=== PATIENT | male | born 1985 | race Caucasian/White ===

== ENCOUNTER 2018-12-17 18:13 | Emergency (ER) | payer OTHER ==
[~2018-12-17] VITALS: Ht 190.5 cm; Wt 113.4 kg
[~2018-12-17 18:13] MED LIST: BACTRIM DS TAB1 EACH PO; CLINDAMYCIN HC150 MG PO; FLEXERIL PO; HUMALOG100 UNIT/1; IBUPROFEN 800800 MG PO; LANTUS; NORCO 5-325 TA1 EACH PO; ULTRACET TABLE1 EACH PO
[2018-12-17 18:36] LABS: URINE BILIRUBIN NEGATIVE (Negative); URINE BLOOD NEGATIVE (Negative); URINE CLARITY CLEAR; URINE COLOR YELLOW; URINE GLUCOSE-RANDOM TRACE (Negative); URINE KETONES NEGATIVE (Negative); URINE LEUKOCYTES-REFLEX 1+ (Negative); URINE NITRITE-REFLEX NEGATIVE (Negative); URINE PROTEIN NEGATIVE (Negative); URINE UROBILINOGEN 0.2 E.U./dl (0.2-1.0)
[2018-12-17 18:43] LABS: MUCUS None Seen strn/LPF (None Seen); SQUAMOUS 0-3 Few /LPF (0-3)
[2018-12-17 18:44] LABS: URINE WBC-REFLEX >25 Many /HPF (0-5)
[2018-12-17 18:45] LABS: BACTERIA-REFLEX 1-9 Few /HPF (None Seen); CASTS None Seen /LPF (None Seen); CRYSTALS None Seen /LPF (None Seen); URINE RBC None Seen /HPF (0-2)
[2018-12-17] MEDS ORDERED: KEFLEX500 M1 PO (19:04)
[2018-12-17 19:19] VITALS: BP 160/102
== END 2018-12-17 19:21 | disposition home or self-care (01) ==
LOC: M.ERS 18:13
PROVIDERS: Physician Assistant
DX: N39.0 Urinary tract infection, site not specified (principal); R36.9 Urethral discharge, unspecified; E10.9 Type 1 diabetes mellitus without complications; F17.210 Nicotine dependence, cigarettes, uncomplicated; F15.10 Other stimulant abuse, uncomplicated

== ENCOUNTER 2019-03-28 14:00 | Emergency (ER) | payer OTHER ==
[~2019-03-28] VITALS: Ht 190.5 cm; Wt 113.4 kg
[~2019-03-28 14:00] MED LIST changes: +KEFLEX500 M1 PO
[2019-03-28 14:13] LABS: URINE BILIRUBIN NEGATIVE (Negative); URINE BLOOD TRACE (Negative); URINE CLARITY SL CLOUDY; URINE COLOR YELLOW; URINE GLUCOSE-RANDOM NEGATIVE (Negative); URINE KETONES NEGATIVE (Negative); URINE NITRITE-REFLEX NEGATIVE (Negative); URINE PROTEIN TRACE (Negative); URINE SPECIFIC GRAVITY 1.025 (1.005-1.030); URINE UROBILINOGEN 0.2 E.U./dl (0.2-1.0)
[2019-03-28 14:14] LABS: URINE LEUKOCYTES-REFLEX 2+ (Negative)
[2019-03-28] MEDS ORDERED: DOXYCYCLINE 10100 MG PO (14:16)
[2019-03-28 14:22] LABS: SQUAMOUS NONE SEEN /LPF (0-3); URINE RBC 0-2 Rare /HPF (0-2); URINE WBC-REFLEX >25 Many /HPF (0-5); WBC CLUMPS Few (None Seen)
[2019-03-28 14:23] LABS: CASTS None Seen /LPF (None Seen); CRYSTALS None Seen /LPF (None Seen); MUCUS 0-3 Light strn/LPF (None Seen)
[2019-03-28 14:47] VITALS: BP 147/92
== END 2019-03-28 14:49 | disposition home or self-care (01) ==
LOC: M.ERS 14:00
PROVIDERS: Physician Assistant
DX: N34.2 Other urethritis (principal); E10.9 Type 1 diabetes mellitus without complications; F17.210 Nicotine dependence, cigarettes, uncomplicated

== ENCOUNTER 2019-05-14 22:13 | Emergency (ER) | payer OTHER ==
[~2019-05-14] VITALS: Ht 188 cm; Wt 113.4 kg
[~2019-05-14 22:13] MED LIST changes: +DOXYCYCLINE 10100 MG PO
[2019-05-14 23:28] LABS: URINE BILIRUBIN NEGATIVE (Negative); URINE BLOOD NEGATIVE (Negative); URINE CLARITY CLEAR; URINE COLOR YELLOW; URINE GLUCOSE-RANDOM NEGATIVE (Negative); URINE KETONES NEGATIVE (Negative); URINE LEUKOCYTES-REFLEX NEGATIVE (Negative); URINE NITRITE-REFLEX NEGATIVE (Negative); URINE PROTEIN NEGATIVE (Negative); URINE SPECIFIC GRAVITY 1.025 (1.005-1.030)
[2019-05-14 23:42] VITALS: BP 139/91
== END 2019-05-14 23:42 | disposition home or self-care (01) ==
LOC: M.ERS 22:13
PROVIDERS: Personal Emergency Response Attendant
DX: A64 Unspecified sexually transmitted disease (principal); E10.9 Type 1 diabetes mellitus without complications; F17.210 Nicotine dependence, cigarettes, uncomplicated

== ENCOUNTER 2019-05-24 04:00 | Inpatient (IN) | payer OTHER ==
[~2019-05-24] VITALS: Ht 190.5 cm; Wt 108.8 kg
[2019-05-24] VITALS (31 sets, daily range): BP systolic 99–157; BP diastolic 22–127
[~2019-05-24 04:00] MED LIST changes: -HUMALOG100 UNIT/1; +HUMALOG100 UNIT/1 SUBQ; -LANTUS; +LANTUS SUBQ
[2019-05-24 04:38] LABS: HEMATOCRIT 51.1 % (42.0-52.0); HEMOGLOBIN 17.2 gm/dL (14.0-18.0); MCH 31.9 pg (26.0-34.0); MCHC 33.6 g/dL (28.0-37.0); MCV 94.9 fL (80.0-100.0); MPV 7.2 fl. (7.2-11.1); NUCLEATED RBCS 0 /100WBC; PLATELET COUNT* 336 thou/uL (150-400); RBC 5.38 mil/uL (4.50-6.00); RDW-CV 13.4 % (10.5-14.5); WBC 12.9 thou/uL (4.0-11.0)
[2019-05-24 04:39] LABS: BE -9.5 mmol/L (-2 to +3); PO2 99.3 mmHg (75.0-100.0)
[2019-05-24 04:40] LABS: pH 7.127 (7.340-7.450)
[2019-05-24 04:41] LABS: PCO2 65.9 mmHg (35.0-45.0)
[2019-05-24 04:43] LABS: CALCIUM 8.2 mg/dL (8.5-10.1); CREATININE 1.9 mg/dL (0.6-1.3); POTASSIUM 4.4 mmol/L (3.5-5.1)
[2019-05-24 04:46] LABS: URINE BILIRUBIN NEGATIVE (Negative); URINE BLOOD 3+ (Negative); URINE CLARITY CLEAR; URINE COLOR YELLOW; URINE GLUCOSE-RANDOM 1+ (Negative); URINE KETONES NEGATIVE (Negative); URINE LEUKOCYTES-REFLEX NEGATIVE (Negative); URINE NITRITE-REFLEX NEGATIVE (Negative); URINE PROTEIN 1+ (Negative); URINE SPECIFIC GRAVITY 1.025 (1.005-1.030); URINE UROBILINOGEN 0.2 E.U./dl (0.2-1.0)
[2019-05-24 04:50] LABS: PROTIME 10.2 Seconds (9.20-11.50)
[2019-05-24 04:55] LABS: AMP/METHAMP Negative (Negative); BARBITURATES Negative (Negative); BENZODIAZEPINES Negative (Negative); COCAINE Negative (Negative); METHADONE Negative (Negative); OPIATES Negative (Negative); PCP Negative (Negative); THC Negative (Negative)
[2019-05-24 04:56] LABS: TOTAL BILIRUBIN 0.3 mg/dL (<0.1-1.0); TOTAL PROTEIN 7.3 g/dL (6.4-8.2)
[2019-05-24 05:07] LABS: AMORPHOUS URATES Moderate /LPF (None Seen); BACTERIA-REFLEX >30 Many /HPF (None Seen); FINE GRANULAR CASTS 0-3 Few /LPF (None Seen); MUCUS 4-6 Moderate strn/LPF (None Seen); SQUAMOUS 0-3 Few /LPF (0-3); URINE RBC 3-10 Few /HPF (0-2); URINE WBC-REFLEX 0-5 Rare /HPF (0-5)
[2019-05-24 05:54] LABS: ABSOLUTE LYMPHOCYTES 1.2 thou/uL (0.8-5.3); ABSOLUTE MONOCYTES 0.3 thou/uL (0.0-1.2); ABSOLUTE NEUTROPHILS 11.5 thou/uL (1.6-8.1); ANISOCYTOSIS 1+; PLATELET ESTIMATE ADEQUATE; POIKILOCYTOSIS 1+
[2019-05-24 06:29] LABS: BE -6.3 mmol/L (-2 to +3)
[2019-05-24 06:30] LABS: PCO2 77.7 mmHg (35.0-45.0); PO2 135.7 mmHg (75.0-100.0); pH 7.137 (7.340-7.450)
--- NOTE | 2019-05-24 06:31 | NUR ---
PT PRESENTED TO THE ED VIA EMS. PT HAD COFFEE GROUND BLOOD TINGED EMESIS ON THE SIDE OF HIS FACE AND AROUND HIS NOSE AND MOUTH.
--- NOTE | 2019-05-24 06:32 | NUR ---
PT RESPONDED TO THE DOCTOR SPEAKING TO HIM FOR THE FIRST TIME SINCE PRESENTING TO THE ED. AT 0610 THE PATIENT REPLIED WITH "WHAT" AND THEN HAD NO FURTHER CONTACT. THE PATIENT HAS SPORADICALLY RESPONDED TO PAINFUL STIMULI BY REMOVING HIMSELF.
--- NOTE | 2019-05-24 08:12 | NUR ---
INTUBATION ORDERED, 10MG VERSED IV PUSH GIVEN AT 0719, 150MG SUCCS IV PUSH GIVEN 0719, INTUBATION STARTED AT 0720, TUBE PLACED 25 AT THE LIP AT 0721, CONFIRMATION WITH COLOR CHANGE, XRAY ORDERED, NG TUBE PLACED IN RIGHT NARE, TUBE LENGTH 65. XRAY CONFIRMATION OF ET TUBE PLACEMENT AT 28 AT THE LIP AT 0745. KUB CONFIRMATION PLACEMENT OF NG TUBE 65 AT RIGHT NARE AT 0750. PT TRANSPORTED TO ICU AT 0750.
[2019-05-24 10:00] LABS: BE -7.1 mmol/L (-2 to +3); PO2 101.3 mmHg (75.0-100.0)
[2019-05-24 10:29] LABS: pH 7.214 (7.340-7.450)
[2019-05-24 10:30] LABS: PCO2 54.7 mmHg (35.0-45.0)
[2019-05-24 12:16] LABS: CREATININE 1.5 mg/dL (0.6-1.3)
[2019-05-24 12:21] LABS: POTASSIUM 6.4 mmol/L (3.5-5.1)
--- NOTE | 2019-05-24 13:00 | NUR ---
PT RECEIVED FROM ER AT 0755, ON VENT SUPPORT. 2L NS BOLUS ADMINISTERED. SEDATION INITIATED WITH VERSED DRIP AND FENTANYL ADDED PER DIRECTOR OF PSYCHIATRY. PT AGITATED AT TIMES TRYING TO PULL OUT THE TUBE, SEDATION INCREASED TO MAX. NS AT 150 MLS/HR. CENTRAL LINE, LT SCL PLACED BY ANESTHESIOLOGIST.
[2019-05-24 13:10] LABS: CALCIUM 6.9 mg/dL (8.5-10.1); CREATININE 1.3 mg/dL (0.6-1.3); POTASSIUM 5.8 mmol/L (3.5-5.1)
[2019-05-24 14:32] LABS: BE -3.2 mmol/L (-2 to +3)
[2019-05-24 14:36] LABS: PCO2 53.3 mmHg (35.0-45.0); PO2 150.5 mmHg (75.0-100.0); pH 7.281 (7.340-7.450)
--- NOTE | 2019-05-24 18:09 | NUR ---
HYPERKALEMIA CORRECTED PER ORDERS, LAST K+ 4.5. INSULIN PER PROTOCOL. PER HIS SISTER IN LAW, HE HAS HAD ISSUES WTIH DRUG OVERDOSE BEFORE AND WAS DIAGNOSED WITH BIPOLAR BUT NOT ON ANY PSYCHIATRIC MEDS. VERSED PUSH ONCE FOR AGITATION. VERSED AND FENTANYL DRIP CONTD AT MAX.
[2019-05-25] VITALS (24 sets, daily range): BP systolic 102–149; BP diastolic 51–111
--- NOTE | 2019-05-25 02:32 | NUR ---
PT. BECAME AGITATED, KICKING AND THROWING LEGS OFF BED, ATTEMPTING TO CLIMB OUT OF BED. VERSED/FENTANYL AT MAX DOSES. VERSED 2MG PUSH GIVEN, NO RELIEF. DR. ERIN BROWN, ORDER RECEIVED FOR PROPOFOL GTT.
[2019-05-25 05:14] LABS: ABSOLUTE EOSINOPHILS 0.1 thou/uL (0.0-0.7); ABSOLUTE LYMPHOCYTES 0.9 thou/uL (0.8-5.3); ABSOLUTE MONOCYTES 0.3 thou/uL (0.0-1.2); ABSOLUTE NEUTROPHILS 9.8 thou/uL (1.6-8.1); BASOPHILS 0.4 %; EOSINOPHILS 0.5 %; HEMATOCRIT 42.7 % (42.0-52.0); LYMPHOCYTES 8.2 %; MCH 32.3 pg (26.0-34.0); MCHC 34.5 g/dL (28.0-37.0); MCV 93.6 fL (80.0-100.0); MONOCYTES 3.1 %; MPV 7.5 fl. (7.2-11.1); NUCLEATED RBCS 0 /100WBC; POLYS 87.8 %; RBC 4.57 mil/uL (4.50-6.00); RDW-CV 13.3 % (10.5-14.5); WBC 11.1 thou/uL (4.0-11.0)
[2019-05-25 05:20] LABS: HEMOGLOBIN 14.7 gm/dL (14.0-18.0); PLATELET COUNT* 192 thou/uL (150-400)
[2019-05-25 05:31] LABS: CALCIUM 7.7 mg/dL (8.5-10.1); CREATININE 1.4 mg/dL (0.6-1.3); POTASSIUM 4.3 mmol/L (3.5-5.1)
[2019-05-25 08:13] LABS: BE 0.6 mmol/L (-2 to +3); PO2 84.6 mmHg (75.0-100.0); pH 7.334 (7.340-7.450)
[2019-05-25 08:20] LABS: PCO2 52.8 mmHg (35.0-45.0)
--- NOTE | 2019-05-25 09:28 | EKG ---
[place] [address] ELECTROCARDIOGRAM REPORT Name: LYLY HDZ Room: [address] ADM IN M.R.#: [id number] Admission: 05/24/19 Attend Phys: Kushal Erickson Discharge: Date of : 87 Report #: [id number] THIS REPORT FOR: //name// [facility] ED Test Date: 2019-05-24 Test Time: 04:22:40 Pat Name: LYLY HDZ Department: Room: [facility] Gender: M Program Schedule Clerk: : 1985 Requested By: Jolanta Chin Order Number: [id number] MD: Abner Shepherd Measurements Intervals [place] Rate: 101 P: 95 AL: 157 QRS: 91 QRSD: 95 T: 25 QT: 346 QTc: 449 Interpretive Statements Sinus tachycardia Borderline right axis deviation ST elevation suggests acute pericarditis No previous ECG available for comparison Electronically Signed On 05-25-2019 9:28:10 BUSINESS DEVELOPMENT OFFICER by Abner Shepherd [email or web address] <ELECTRONICALLY SIGNED> By: Abner Shepherd MD, [facility] 05/25/19 0928 1 1 Abner Shepherd MD, FACC /EPI
--- NOTE | 2019-05-25 09:42 | NUR ---
PT SEEN BY HEBREW PROFESSOR, EXTUBATION ORDERS RECEIVED. PT EXTUBATED AT 0931, EXTUBATION UNEVENTFUL. ON HIGH FLOW NC 15L/M.
--- NOTE | 2019-05-25 09:44 | 2DMMODE ---
[place] [address] 2 D/M-MODE ECHOCARDIOGRAM Name: LYLY HDZ Room: [address] ADM IN M.R.#: [id number] Admission: 05/24/19 Attend Phys: Kushal jara Sa Discharge: Date of : 87 Date of Service: 05/25/19 0944 Report #: [id number] THIS REPORT FOR: //name// APPROVED REPORT Study performed: 05/24/2019 13:13:19 EXAM: Comprehensive 2D, Doppler, and color-flow Echocardiogram Patient Location: Bedside BSA: 2.46 HR: 110 bpm BP: 138/47 mmHg Other Information Study Quality: Good Indications Elevated Troponin 2D Dimensions IVSd: 19.82 (7-11mm) LVOT Diam: 24.23 (18-24mm) LVDd: 39.82 mm PWd: 12.09 (7-11mm) Ascending Ao: 41.00 (22-36mm) LVDs: 34.44 (25-40mm) Aortic Root: 31.87 mm Volumes Left Atrial Volume (Systole) LA ESV Index: 18.30 mL/m2 Aortic Valve AoV Peak Donald.: 0.90 m/s AO Peak Gr.: 3.22 mmHg LVOT Max P.86 mmHg AO Mean Gr.: 1.72 mmHg LVOT Mean P.19 mmHg LVOT Max V: 0.85 m/s AO V2 VTI: 15.28 cm LVOT Mean V: 0.49 m/s SHAI (VTI): 3.26 cm2 LVOT V1 VTI: 10.80 cm Mitral Valve E/A Ratio: 0.83 MV Decel. Time: 129.17 ms MV E Max Donald.: 0.64 m/s MV PHT: 37.46 ms MVA (PHT): 5.87 [place]2 [place] [address] 2 D/M-MODE ECHOCARDIOGRAM Name: LYLY HDZ Room: [address] IN .R.#: [id number] Admission: 05/24/19 Attend Phys: Kushal jara Sa Discharge: Date of : 87 Date of Service: 05/25/19 0944 Report #: [id number] TDI E/Lateral E': 5.82 E/Medial E': 5.82 Medial E' Donald.: 0.11 m/s Lateral E' Donald.: 0.11 m/s Pulmonary Valve PV Peak Donald.: 0.98 m/s PV Peak Gr.: 3.87 mmHg Left Ventricle The left ventricle is normal size. There is normal LV segmental wall motion. Concentric left ventricular hypertrophy. Left ventricular systolic function is normal. LVEF is 55-60%. The left ventricular diastolic function is normal. Right Ventricle Right ventricle is mildly dilated. The right ventricular systolic function is normal. Atria The left atrium size is normal. Right atrium is mildly dilated. Aortic Valve The aortic valve is normal in structure. No aortic regurgitation is present. There is no aortic valvular stenosis. Mitral Valve The mitral valve is normal in structure. There is no mitral valve regurgitation noted. No evidence of mitral valve stenosis. Tricuspid Valve The tricuspid valve is normal in structure. There is no tricuspid valve regurgitation noted. Pulmonic Valve The pulmonary valve is normal in structure. There is no pulmonic valvular regurgitation. Great Vessels The aortic root is normal in size. Ascending aorta is dilated. IVC is normal in size and collapses >50% with inspiration. Pericardium There is [place] [address] 2 D/M-MODE ECHOCARDIOGRAM Name: LYLY HDZ Room: [address] IN ..#: [id number] Admission: 05/24/19 Attend Phys: Kushal jara Sa Discharge: Date of : 87 Date of Service: 05/25/19 0944 Report #: [id number] <Conclusion> The left ventricle is normal size. Concentric left ventricular hypertrophy. LVEF is 55-60%. The left ventricular diastolic function is normal. Right ventricle is mildly dilated. Right atrium is mildly dilated. IVC is normal in size and collapses >50% with inspiration. Ascending aorta is dilated. (4.1 cm) <ELECTRONICALLY SIGNED> By: Abner Shepherd MD, FACC 05/25/1943 3 3 Abner Shepherd MD, FACC /INF
--- NOTE | 2019-05-25 10:05 | CON ---
[address] [address] CONSULTATION Name: ANDREINALYLY TAMAYO Room: [address] ADM IN M.R.#: [id number] Admission: 05/24/19 Attend Phys: Kushal Erickson Discharge: Date of : 87 Report #: [id number] THIS REPORT FOR: //name// CC: NAVNEET physician/PCP Kushal Caruso REASON FOR CONSULTATION: Respiratory failure. REFERRING PHYSICIAN: Dr. Orozco HISTORY OF PRESENT ILLNESS: The patient was intubated, sedated during my evaluation, did not participate in the history. I reviewed medical records, discussed with the nursing staff. His father is also at the bedside, provided some medical information. This is a 34-year-old male patient who was found unresponsive by a friend. Apparently, the friend did some CPR for him. EMS was called and they gave him Narcan, apparently he woke up afterward and became agitated. He was given ketamine. He was transferred to the ER. In the ER, he was agitated and they tried him on BiPAP; however, he developed hypercapnic respiratory failure unresponsive to noninvasive ventilation. He had to be intubated. During my visit in the ICU, he was on the vent. He looks comfortable. He has been started on Versed drip. During my visit, he was on 3 mg and did not respond to me. The secretions from the ET tube demonstrated thin material with increased secretions. There is a history of heroin use and the patient and apparently there was a concern that he might did some heroin overnight and also then reported vomiting by EMS. His father at the bedside told me that since the patient smokes, but he never had a lung disease, never been on oxygen, CPAP or inhalers, but also reported the patient has diabetes. PAST MEDICAL HISTORY: Diabetes mellitus. There is a mention of drug abuse in his history. PAST SURGICAL HISTORY: No chest surgery. FAMILY HISTORY: Reviewed with the father noncontributory. SOCIAL HISTORY: He smokes per the father. There is a mention of drug abuse in his records. REVIEW OF SYSTEMS: Unobtainable due to the patient's condition. ALLERGIES: No available information. PHYSICAL EXAMINATION: VITAL SIGNS: On examination, he is on 100% oxygen with saturation 97%, blood pressure 130/47, pulse rate of 98, temperature 36.7[place] [address] CONSULTATION Name: LYLY HDZ Room: [address] IN [facility]#: [id number] Admission: 05/24/19 Attend Phys: Kushal Erickson Discharge: Date of : 87 Report #: [id number] GENERAL: Looks his stated age, sedated on the vent. HEENT: Head normocephalic, atraumatic. Pupils pinpoint, sluggish reaction to light equally bilaterally. Not pale, no jaundice. Externally, looks normal. Oral cavity, moist mucous membrane. ET tube in place. NECK: Full range of movement. Trachea central. No palpable lymph node. CHEST: Diminished air movement bilaterally, prolonged expiratory phase. No wheezes, some rhonchi heard bilaterally. HEART: S1, S2, no murmur. ABDOMEN: Benign, soft, lax, nontender, positive bowel sounds, sluggish bowel sounds. No masses felt, no rebound, no rigidity. EXTREMITIES: Lower extremity: No edema, no calf tenderness. SKIN: No rash. PSYCHIATRIC: Mood and affect could not be evaluated. NEUROLOGIC: He is sedated. MUSCULOSKELETAL: Normal inspection. LABORATORY DATA: He had multiple imaging. The CT head and CT cervical spine, no acute pathology. His chest x-ray demonstrated bilateral infiltrate. His white blood count 12.9, hemoglobin 17.2 and platelets of 336. His ABGs initially on the BiPAP 7.137/77/135. This was on the BiPAP prior to intubation. His INR is 1. His creatinine is 1.9 with a potassium 4.4, BUN of 32. His AST and ALT elevated. His CPK is also elevated. Urine drug screen did not show any positive abnormal finding. IMPRESSION: 1. Acute hypoxic respiratory failure. 2. Pulmonary infiltrates bilaterally. 3. Pneumonia. 4. Aspiration into the airways. 5. Mental status change. 6. Diabetes mellitus. 7. Hyperglycemia. 8. Concerns about encephalopathy. 9. Concerns about drug overdose with synthetic heroin. 10. Elevated CPK. PLAN: At this point, the patient has required significant amount of oxygen, although the O2 sat on the monitor was 97%. Waiting for the blood gas before start weaning, I would continue him on the assist controlled ventilation keep the PEEP at 8. Discussed with RN, we need him to be sedated for now till his O2 needs are better. He is currently on 100% oxygen. We can use Versed and fentanyl for sedation. We will hold off on tube feeding him at least 24 hours and his oxygen needs improved. Agree with the fluid resuscitation. He currently does not require [facility] [address] [place] [address] CONSULTATION Name: LYLY HDZ Room: [address] IN M.R.#: [id number] Admission: 05/24/19 Attend Phys: Kushal jara Morse Discharge: Date of : 87 Report #: [id number] vasopressors. Once his O2 needs have improved, we will start waking him up and evaluate his mental status. It was noted Neurology was consulted. We will do a followup chest x-ray, blood gas. There is a concern of the ARDS at this point. We will continue the patient on the current treatment. Discussed with the father at the bedside. Discussed with RN and RT. Critical care time 50 minutes. <ELECTRONICALLY SIGNED> By: Sara Ron MD 05/25/19 1005 1007 [id number] Ron MD /nt
[2019-05-25 10:08] LABS: HIV-1/HIV-2 ANTIBODY Non Reactive (Non Reactive)
--- NOTE | 2019-05-25 11:11 | NUR ---
PT.EXTUBATED THIS AM. ON O2 BY NC. SLEEPS, WAKES UP TO ASK FOR WATER OR ICE. SEEMED TO KNOW VISITORS. FATHER PRESENT. FEMALE PRESENT. I ASKED HER WHO SHE WAS. SHE SAID FAMILY. I ASKED ARE YOU A SISTER OR HIS GIRLFRIEND. SHE WHISPERED GIRL FRIEND. FATHER CONFIRMED PT.HAS NO INSURANCE AND IS BASICALLY UNEMPLOYED. HE SAID IF SOMETHING COMES AROUND(A JOB), HE WILL DO IT. INTRODUCED ROLE OF CM AND THAT WE WOULD FOLLOW PT.DURING HOSPITAL STAY FOR ANY DISCHARGE NEEDS.
--- NOTE | 2019-05-25 19:36 | NUR ---
PT PASSED BED SIDE SWALLOW AND EATING REGULAR DIET. INSULIN PER PROTOCOL.GOOD URINE OUTPUT. FAMILY IN THE ROOM. PROGRESSING TOWARDS GOALS.
--- NOTE | 2019-05-25 22:30 | NUR ---
SPOKE TO PT, ANSWERING HIS QUESTIONS ABOUT HIS ADMISSION. THIS RN ASKED PT WHAT HE REMEMBERED FROM THAT DAY, PT REPLIED "I DON'T KNOW HOW MUCH I SHOULD SAY. I TOOK A SHOT OF HEROIN. I USED TO DO STUFF LIKE THAT BUT I HADN'T IN A LONG TIME. I DON'T KNOW WHY I THOUGHT IT WAS A GOOD IDEA." PT WAS TEARFUL AND REMORSEFUL, STATING "I WOULD HAVE . MY BROTHER SAVED MY LIFE."
[2019-05-26] VITALS (17 sets, daily range): BP systolic 108–154; BP diastolic 46–79
--- NOTE | 2019-05-26 04:34 | NUR ---
PATIENT O2 SAT DECREASED TO MID 80'S ON HFNC. ATTEMPTED TO GET SATURATIONS BACK UP BY TITRATING UP ON O2 WITH NO SUCCESS. PATIENT PLACED ON NON-REBREATHER AT 15L. SATURATIONS STAYING IN MID TO UPPER 90'S.
[2019-05-26 04:43] LABS: ABSOLUTE EOSINOPHILS 0.1 thou/uL (0.0-0.7); ABSOLUTE LYMPHOCYTES 0.6 thou/uL (0.8-5.3); ABSOLUTE MONOCYTES 0.5 thou/uL (0.0-1.2); ABSOLUTE NEUTROPHILS 10.8 thou/uL (1.6-8.1); BASOPHILS 0.3 %; EOSINOPHILS 1.1 %; HEMATOCRIT 39.8 % (42.0-52.0); LYMPHOCYTES 4.6 %; MCH 32.6 pg (26.0-34.0); MCHC 35.1 g/dL (28.0-37.0); MCV 92.9 fL (80.0-100.0); MONOCYTES 4.1 %; MPV 7.3 fl. (7.2-11.1); NUCLEATED RBCS 0 /100WBC; PLATELET COUNT* 185 thou/uL (150-400); POLYS 89.9 %; RBC 4.29 mil/uL (4.50-6.00); RDW-CV 13.1 % (10.5-14.5)
[2019-05-26 05:00] LABS: CALCIUM 8.5 mg/dL (8.5-10.1); CREATININE 1.1 mg/dL (0.6-1.3); POTASSIUM 4.1 mmol/L (3.5-5.1)
--- NOTE | 2019-05-26 06:39 | NUR ---
ASSESSMENTS CHARTED. PATIENT HAS BEEN AGITATED WITH STAFF FOR THE MAJORITY OF THE SHIFT. BLOOD GLUCOSE LEVELS HAVE BEEN ELEVATED, ADMINISTERED INSULIN AND OBTAINED NEW INSULIN ORDERS. PATIENT STILL NOT SATISFIED WITH INCREASED INSULIN ADMINISTRATION DESPITE BLOOD GLUCOSE LEVELS RETURNING TO NORMAL RANGE FOR THE PATIENT. PATIENT REMAINS ON NONREBREATHER AT 15L. PATIENT EXPECTORATING LARGE AMOUNTS OF JORDAN MUCOUS FROM LUNGS. EARLY IN THE SHIFT, PATIENT STATED TO KENDALL GAONA THAT HE HAD USED HERION PRIOR TO LOSING CONCIOUSNESS AT HOME. PATIENT'S FAMILY AT BEDSIDE. THERE IS DIFFICULTY IN GETTING THE PATIENT'S GIRLFRIEND TO FOLLOW HOSPITAL RULES INCLUDING NOT CLIMBING IN BED WITH THE PATIENT AND LEAVING WHEN VISITING HOURS ARE OVER. OTHER FAMILY MEMBERS MORE COOPERATIVE.
--- NOTE | 2019-05-26 11:31 | NUR ---
ICU rounds: Extubated yesterday. Quintero out today. Pt admitted to using heroin. On HF o2 via NC. Carb controlled diet for DM. DC fluids. Continue ICU status today.
--- NOTE | 2019-05-26 13:16 | NUR ---
PT TO THE RECLINER, STB. PORTER'Raman VALERO OUT.
--- NOTE | 2019-05-26 15:48 | NUR ---
PT A&O X4. VSS. O2 SATS >95% IN HFC 65%. PT HAS NOT VOIDED POST PORTER OUT. TOLERATING DIET. INSULIN PER PROTOCOL. REPORT GIVEN TO GREGORY KOHLER.
--- NOTE | 2019-05-26 15:50 | NUR ---
REPORT RECEIVED FROM Aylin VELASCO. PT TO FLOOR AT APPROXIMATELY 1535. ASSESSMENY COMPLETED CHARTED. HOURLY ROUNDING AND FALL PRECAUTIONS IN PLACE FOR PT SAFETY
[2019-05-27] VITALS (7 sets, daily range): BP systolic 140–151; BP diastolic 66–82
[2019-05-27 03:55] LABS: ABSOLUTE EOSINOPHILS 0.2 thou/uL (0.0-0.7); ABSOLUTE LYMPHOCYTES 0.6 thou/uL (0.8-5.3); ABSOLUTE MONOCYTES 0.5 thou/uL (0.0-1.2); BASOPHILS 0.3 %; EOSINOPHILS 1.7 %; HEMATOCRIT 40.1 % (42.0-52.0); MCH 32.6 pg (26.0-34.0); MCHC 34.9 g/dL (28.0-37.0); MCV 93.5 fL (80.0-100.0); MONOCYTES 5.3 %; MPV 7.9 fl. (7.2-11.1); NUCLEATED RBCS 0 /100WBC; PLATELET COUNT* 193 thou/uL (150-400); POLYS 86.7 %; RBC 4.29 mil/uL (4.50-6.00); WBC 10.4 thou/uL (4.0-11.0)
[2019-05-27 05:12] LABS: ALBUMIN 2.3 g/dL (3.4-5.0); POTASSIUM 4.2 mmol/L (3.5-5.1); TOTAL BILIRUBIN 0.5 mg/dL (<0.1-1.0); TOTAL PROTEIN 6.4 g/dL (6.4-8.2)
--- NOTE | 2019-05-27 07:49 | NUR ---
ASSUMED PT CARE AT APPROX 1930. PT IS AWAKE AND ORIENTED X4. VSS ON HFC AT 65% FiO2, NO DESATURATIONS NOTED WHILE ON THE HIGH FLOW O2 SUPPORT. FOOD SERVER IS TRACING SR. ASSESSMENT DONE AND CHARTED. PT C/O ARM AND SHOULDER PAIN RELIEVED BY PAIN MEDICINE GIVEN PER SEP. TAPERED OXYCODONE ORDERED. PT IS ABLE TO SLEEP MOST OF THE NIGHT. CALL LIGHT WITHIN REACH. HOURLY ROUNDING DONE FOR PT SAFETY. FALL PRECAUTIONS IN PLACE.
--- NOTE | 2019-05-27 09:27 | CON ---
[address] [address] CONSULTATION Name: LYLY HDZ Room: [address] ADM IN M.R.#: [id number] Admission: 05/24/19 Attend Phys: Kushal Erickson Discharge: Date of : 87 Report #: [id number] THIS REPORT FOR: //name// CC: NAVNEET physician/PCP Kushal Caruso DATE OF SERVICE: 05/24/2019 NEPHROLOGY CONSULTATION CONSULTING PHYSICIAN: Dr. Fatima. REASON FOR NEPHROLOGY CONSULTATION: Acute kidney injury, rhabdomyolysis. REASON FOR ADMISSION: Altered mental status, encephalopathy. HISTORY OF PRESENT ILLNESS: This is a 34-year-old male who was brought to the hospital after he was found unresponsive in a camper and EMS was called. Apparently, he also received CPR for a brief unknown period of time and received Narcan after which he did wake up and he was agitated. He was given ketamine at that time. He was brought to the ER, initially put on BiPAP. His pupils constricted. He had some jerking of the upper extremities. He had to be intubated because of severe respiratory acidosis. He was also found to have CPK of 13,000 and his creatinine was 1.9, and hence Nephrology was consulted. He is getting IV fluids and he has a Quintero catheter with good urine output. There is concern for heroin use because his UDS is negative. ALLERGIES: We do not know. REVIEW OF SYSTEMS: As mentioned in history of present illness. Otherwise he is intubated and sedated, we cannot obtain. PAST MEDICAL AND SURGICAL HISTORY: We do not know. FAMILY HISTORY: We do not know. HOME MEDICATIONS: We do not know. PHYSICAL EXAMINATION: VITAL SIGNS: Blood pressure is 110/49, pulse rate 96, temperature is 36.7, respiratory rate is 12, pulse ox 97% and he is on 100% FiO2 on the ventilator. GENERAL: He is currently intubated and sedated. HEAD AND EYES: Atraumatic, normocephalic. EARS, NOSE, AND THROAT: He has an ET tube in place. NECK: No JVD. CHEST: Bilaterally diminished breath sounds anteriorly[place] [address] CONSULTATION Name: LYLY HDZ Room: [address] IN [facility].#: [id number] Admission: 05/24/19 Attend Phys: Kushal Erickson Discharge: Date of : 87 Report #: [id number] wheezing. CARDIOVASCULAR: S1, S2 normal. No murmurs. ABDOMEN: Soft, nondistended. Bowel sounds present. EXTREMITIES: Lower extremities; there is no lower extremity edema. NEUROLOGICAL FUNCTION: He is currently sedated. PSYCHIATRIC: Cannot assess. LABORATORY DATA: WBC 12.9, hemoglobin 17.2, sodium is 134, potassium is 4.4, BUN is 32, creatinine is 1.9, CO2 [place] 26 [place] [address], and other labs were reviewed. IMAGING: Chest x-ray, cervical CT, abdominal x-ray were reviewed. ASSESSMENT: 1. Acute kidney injury, which is in the setting of intravascular volume depletion and rhabdomyolysis, creatinine 1.9 on admission and urinalysis shows 3-10 rbc's per high power field, 1+ protein and granular casts. Renal imaging is pending. 2. Severe rhabdomyolysis. CPK is 13,000 on admission. 3. Transaminitis. 4. Aspiration pneumonia. 5. Acute encephalopathy. 6. Acute respiratory failure. 7. Acute respiratory acidosis, which is in the setting of likely opioid abuse. 8. Surgery with sepsis. PLAN: 1. Continue with IV fluids, normal saline at 125 mL an hour for now, follow CPK, keep his MAP around 65-70. 2. We will check renal ultrasound. Strict I's and O's. Thank you for this consultation. We will continue to follow along with you. <ELECTRONICALLY SIGNED> By: Una Arnold MD 05/27/19 0927 1101 [id number] Arnold MD /nt
--- NOTE | 2019-05-27 18:57 | EEG ---
[address] [address] EEG STUDY REPORT Name: LYLY HDZ Room: [address] IN M.R.#: [id number] Admission: 05/24/19 Attend Phys: Kushal Erickson Discharge: Date of : 87 Report #: [id number] THIS REPORT FOR: //name// CC: NAVNEET physician/PCP Kushal Caruso This patient is being evaluated for altered mental status. EEG was done by placing the electrode by standard 10-20 system of electrode placement. Both referential and sequential montages were used for recording. Background activity in this patient's EEG is about 6-7 Hz and 10-15 microvolts. It is a symmetrical activity. The patient is unresponsive. Photic stimulation was unremarkable. IMPRESSION: This is an abnormal EEG because it is disorganized and poorly formed. That is a nonspecific abnormality, which can occur with encephalopathy, effect of psychotropic medication, dementia, etc. Clinical correlation is recommended. <ELECTRONICALLY SIGNED> By: Barrington Luke MD 05/27/19 1857 1730 [id number] Luke MD /nt
--- NOTE | 2019-05-27 18:57 | CON ---
[address] [address] CONSULTATION Name: LYLY HDZ Room: [address] IN M.R.#: [id number] Admission: 05/24/19 Attend Phys: Kushal Erickson Discharge: Date of : 87 Report #: [id number] THIS REPORT FOR: //name// CC: NAVNEET physician/PCP Kushal Caruso DATE OF SERVICE: 05/24/2019 HISTORY OF PRESENT ILLNESS: This is a 34-year-old male patient who was evaluated by me for altered mental status. This patient does not provide any history. No family member is here. I talked to the nurses looking after this patient and this patient was admitted when he was found with shallow respiration. The history is from the records and it looks like the patient has a history of methamphetamine use and recently met a girl who has used heroin. He was admitted with a suspected overdose. Presently, he is on sedation. Narcan woke him up and he became very agitated. Nurses indicate that they tried to wean him off the sedation and they were unsuccessful, in fact, multiple people were required to hold him down. REVIEW OF SYSTEMS: Available only as described above. Review of systems indicate that this patient continued to be unresponsive. His potassium is 6.4. His blood sugar is 231. He did have kidney problem. His calcium is only 7. His albumin is normal at 4. This is all the relevant 14-point review of system, I can get. PAST MEDICAL HISTORY: Unavailable, but he has a history of drug use. FAMILY HISTORY: Unavailable. SOCIAL HISTORY: As described above. The patient has a brother, but he was not available. PHYSICAL EXAMINATION: The patient's examination is limited. He is sedated. When sedation vacation is given, he become extremely agitated and according to the nurses, it took about 8-9 people to restrain him after that. His pupil looks about the same. There is no meningeal sign in this patient. He did have some workup done. He did have a CT scan of the head, which showed no acute changes. He is intubated. His blood pressure is 110/49, respiration is 19, pulse is 96. He has been afebrile. LABORATORY DATA: His white count is trace high at 12.9, but he has multiple other abnormality. IMPRESSION: Difficult to form in this patient as history is not available. I suspect encephalopathy including hypoxic will [place] [address] CONSULTATION Name: LYLY HDZ Room: [address] IN [facility]#: [id number] Admission: 05/24/19 Attend Phys: Kushal Erickson Discharge: Date of : 87 Report #: [id number] His workup is going to be difficult because of his agitation. I will go ahead and do an EEG in this patient and later on, we may have to consider an MRI, but the workup including MRI will be very difficult with such severe agitation and the patient's part. Thank you very much for this referral. <ELECTRONICALLY SIGNED> By: Barrington Luke MD 05/27/19 1857 1239 [id number] Luke MD /nt
[2019-05-28] VITALS (7 sets, daily range): BP systolic 125–156; BP diastolic 69–85
[2019-05-28 02:07] LABS: GLYCOHEMOGLOBIN (HGB A1C) 7.3 % (4.8-5.6)
--- NOTE | 2019-05-28 05:24 | NUR ---
ASSUMED PT CARE AT APPROX 1930. PT IS AWAKE AND ORIENTED X4. VSS ON 6L OF O2/NC. DISPLAY COORDINATOR IN PLACE TRACING SR/ST. ASSESSMENT DONE AND CHARTED. PT C/O SHOULDER AND ARM PAIN RELIEVED BY TYLENOL GIVEN PER SEP. PT IS ABLE TO SLEEP MOST OF THE NIGHT. O2 SUPPORT TITRATED TO 4L PER RT, NO DESATURATIONS/RESP DISTRESS NOTED. CALL LIGHT WITHIN REACH. HOURLY ROUNDING DONE FOR PT SAFETY.
[2019-05-28 05:31] LABS: ABSOLUTE EOSINOPHILS 0.2 thou/uL (0.0-0.7); ABSOLUTE LYMPHOCYTES 0.8 thou/uL (0.8-5.3); ABSOLUTE MONOCYTES 0.8 thou/uL (0.0-1.2); ABSOLUTE NEUTROPHILS 7.9 thou/uL (1.6-8.1); BASOPHILS 0.2 %; EOSINOPHILS 2.2 %; HEMATOCRIT 40.2 % (42.0-52.0); HEMOGLOBIN 14.1 gm/dL (14.0-18.0); LYMPHOCYTES 7.9 %; MCH 32.6 pg (26.0-34.0); MCHC 35.1 g/dL (28.0-37.0); MCV 93.1 fL (80.0-100.0); MONOCYTES 8.5 %; MPV 7.7 fl. (7.2-11.1); NUCLEATED RBCS 0 /100WBC; PLATELET COUNT* 236 thou/uL (150-400); POLYS 81.2 %; RBC 4.32 mil/uL (4.50-6.00); RDW-CV 12.8 % (10.5-14.5); WBC 9.7 thou/uL (4.0-11.0)
[2019-05-28 05:40] LABS: ALBUMIN 2.5 g/dL (3.4-5.0); CALCIUM 9.2 mg/dL (8.5-10.1); POTASSIUM 3.7 mmol/L (3.5-5.1); TOTAL BILIRUBIN 0.4 mg/dL (<0.1-1.0); TOTAL PROTEIN 6.9 g/dL (6.4-8.2)
--- NOTE | 2019-05-28 13:36 | NUR ---
PT WAS SCREENED BY [employer], NOT ELIGIBLE FOR MEDICAID
--- NOTE | 2019-05-28 18:00 | NUR ---
PT VSS, PT CHANGED TO MED SURG STATUS, PT UP AD JENNY, PT AMBULATING WITH OXYGEN BOTTLE. HOURLY ROUNDING PERFORMED. POSSESSIONS AND CALL LIGHT WITHIN REACH. PT HAS LEFT SUBCLAVIAN TRIPLE LUMEN PICC, BLOOD RETURN ON ALL.
--- NOTE | 2019-05-29 03:34 | NUR ---
PT ALERT ORIENTED. UP AD JENNY IN ROOM. MED SURG STATUS. O2 AT 2 LITERS NC.
[2019-05-29 04:00] VITALS: BP 144/81
[2019-05-29 05:44] LABS: ABSOLUTE EOSINOPHILS 0.5 thou/uL (0.0-0.7); ABSOLUTE LYMPHOCYTES 1.1 thou/uL (0.8-5.3); ABSOLUTE MONOCYTES 1.1 thou/uL (0.0-1.2); ABSOLUTE NEUTROPHILS 7.9 thou/uL (1.6-8.1); BASOPHILS 0.4 %; EOSINOPHILS 4.3 %; HEMATOCRIT 44.1 % (42.0-52.0); HEMOGLOBIN 15.5 gm/dL (14.0-18.0); MCHC 35.1 g/dL (28.0-37.0); MCV 93.9 fL (80.0-100.0); MONOCYTES 10.9 %; MPV 7.1 fl. (7.2-11.1); NUCLEATED RBCS 0 /100WBC; PLATELET COUNT* 272 thou/uL (150-400); POLYS 74.4 %; WBC 10.5 thou/uL (4.0-11.0)
[2019-05-29 06:05] LABS: CALCIUM 9.5 mg/dL (8.5-10.1); CREATININE 1.1 mg/dL (0.6-1.3); POTASSIUM 4.2 mmol/L (3.5-5.1)
[2019-05-29 08:00] VITALS: BP 136/73
[2019-05-29] MEDS ORDERED: SEROQUEL 100 M100 M1 PO (11:37)
[2019-05-29] MEDS ORDERED: PRINIVIL20 M1 PO (11:39)
[2019-05-29 12:51] VITALS: BP 130/89
--- NOTE | 2019-05-29 16:31 | NUR ---
PT VSS, MED SURG STATUS, USING O2 AT 2L VIA NASAL CANULA PRN. UP AD JENNY. HOURLY ROUNDING PERFORMED, POSSESSIONS AND CALL LIGHT WITHIN REACH. PT REQ TO HAVE HOME MEDS ADIMINISTERED. DR SWAN SAID OK, HAVE PHARMACY VERIFY. TOOK MEDS TO PHARMACY. TRANSFERRED PATIENT TO ROOM 110, TRANSFERRED CARE TO [facility]OL[facility]. PATIENT AND BELONGINGS DELIVERED AROUND 1400.
--- NOTE | 2019-05-29 19:00 | NUR ---
PATIENT REC'D TRANSFER FROM TELE THIS PM. REPORT REC'D FROM 2W RN. PATIENT PLEASANT AND COOPERATIVE. PATIENT ORIENTED TO RM, POC AND CALL LIGHT. FAMILY MEMBERS IN TO SEE. PATIENT UP INDEP IN RM. DENIES NURSING NEEDS AT THIS TIME. CALL LIGHT IN REACH. HRLY ROUNDS DONE. ~VALORIE
[2019-05-29 19:30] VITALS: BP 133/66
--- NOTE | 2019-05-30 04:36 | NUR ---
PATIENT HAS REMAINED ALERT AND ORIENTED X 4 THROUGHOUT THE SHIFT AND RESTING QUIETLY ON HOURLY ROUNDS. UP INDEPENDENTLY IN THE ROOM. COOPERATIVE WITH CARES. ANTIBIOTICS PER ORDER. VITAL SIGNS STABLE. PATIENT ANXIOUS TO HAVE IMPROVED CHEST X-RAY THIS MORNING. CONTINUE TO MONITOR.
[2019-05-30 09:30] VITALS: BP 127/68
[2019-05-30 09:45] VITALS: BP 139/71
[2019-05-30 16:28] VITALS: BP 120/68
--- NOTE | 2019-05-30 19:00 | NUR ---
PATIENT PLEASANT AND COOPERATIVE THRU SHIFT. IV CATH SITE NOTED WNL. AMBULATING IN HALLS INDEP W/ STEADY GAIT. EATING WELL. SHOWER INDEP THIS AFTERNOON. 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 CURRENTLY IN RM, TV ON. DENIES NURSING NEEDS AT THIS TIME. CALL LIGHT IN REACH. HRLY ROUNDS DONE. ~TJRN
[2019-05-30 20:20] VITALS: BP 119/63
--- NOTE | 2019-05-31 05:04 | NUR ---
PT ALERT AND ORIENTED, VSS RA. MEDS GIVEN ORDERED. PT DENIED PAIN. NO C/O NAUSEA OR VOMITING. INDEPENDENT IN THE ROOM. WILL CONTINUE TO MONITOR.
[2019-05-31 05:19] LABS: ABSOLUTE BASOPHILS 0.1 thou/uL (0.0-0.2); ABSOLUTE EOSINOPHILS 0.7 thou/uL (0.0-0.7); ABSOLUTE LYMPHOCYTES 1.3 thou/uL (0.8-5.3); ABSOLUTE MONOCYTES 0.7 thou/uL (0.0-1.2); ABSOLUTE NEUTROPHILS 6.3 thou/uL (1.6-8.1); EOSINOPHILS 7.4 %; HEMATOCRIT 45.6 % (42.0-52.0); HEMOGLOBIN 15.7 gm/dL (14.0-18.0); LYMPHOCYTES 14.6 %; MCH 32.2 pg (26.0-34.0); MCHC 34.4 g/dL (28.0-37.0); MCV 93.4 fL (80.0-100.0); MONOCYTES 8.1 %; NUCLEATED RBCS 0 /100WBC; PLATELET COUNT* 338 thou/uL (150-400); POLYS 68.9 %; RBC 4.88 mil/uL (4.50-6.00); WBC 9.1 thou/uL (4.0-11.0)
[2019-05-31 05:45] LABS: CALCIUM 8.2 mg/dL (8.5-10.1); CREATININE 1.1 mg/dL (0.6-1.3); POTASSIUM 4.5 mmol/L (3.5-5.1)
[2019-05-31 07:20] VITALS: BP 116/71
[2019-05-31 07:59] VITALS: BP 116/71
[2019-05-31 09:23] VITALS: BP 116/71
[2019-05-31] MEDS ORDERED: AUGMENTIN 875-1 EACH PO (09:25)
--- NOTE | 2019-05-31 10:38 | NUR ---
PT GIVEN DSICHARGE INFORMATION, CARES NOTES, AND PRESCRIPTIONS. CENTRAL LINE DISCONTINUED. FALL RISK PRECAUTIONS IN PLACE. HOURLY ROUNDING COMPLETED. PT LEFT WITH NURSING STAFF AMBULATORY TO HOME.
[2019-05-31 11:14] VITALS: BP 116/71
== END 2019-05-31 11:14 | disposition home or self-care (01) | DRG 871 ==
LOC: EDBD 04:00 → M.ERS 04:00 → M.ICU 06:43 → M.TBA-ER 06:43 → M.2W 06:43 → M.ICU 07:35 → M.2W 05-26 15:30 → M.ORTHSURG 05-29 15:13
PROVIDERS: Emergency Medicine; Internal Medicine; Internal Medicine Pulmonary Disease; ADMIT Family Medicine
PROC: 02HV33Z Insertion of Infusion Device into Superior Vena Cava, Percutaneous Approach (ICD-10-PCS; principal; 2019-05-24)
DX: A41.9 Sepsis, unspecified organism (principal); J96.02 Acute respiratory failure with hypercapnia; J69.0 Pneumonitis due to inhalation of food and vomit; N17.0 Acute kidney failure with tubular necrosis; G92 Toxic encephalopathy; J96.01 Acute respiratory failure with hypoxia; M62.82 Rhabdomyolysis; N17.9 Acute kidney failure, unspecified; G93.1 Anoxic brain damage, not elsewhere classified; T40.1X1A Poisoning by heroin, accidental (unintentional), initial encounter; R74.0 Nonspecific elevation of levels of transaminase and lactic acid dehydrogenase [LDH]; E86.9 Volume depletion, unspecified; E11.65 Type 2 diabetes mellitus with hyperglycemia; Y92.89 Other specified places as the place of occurrence of the external cause